=== PATIENT | male | born 1985 | race Caucasian/White ===

== ENCOUNTER 2022-01-29 20:35 | Emergency (ER) | payer SELFPAY ==
[~2022-01-29] VITALS: Ht 160 cm; Wt 59.0 kg
[2022-01-29] MEDS ORDERED: METHOCARBAMOL 500MG TABLET PO ONE (23:15)
[2022-01-29] MEDS ORDERED: KETOROLAC 60MG/2ML VIAL IM ONE (23:15)
[2022-01-29 23:45] VITALS: BP 107/65
[2022-01-30] MEDS ORDERED: NAPR-681 MT (01:58)
[2022-01-30] MEDS ORDERED: METH-773 MT (01:59)
== END 2022-01-30 02:15 | disposition home or self-care (01) ==
LOC: ER 20:35
DX: S16.1XXA Strain of muscle, fascia and tendon at neck level, initial encounter (principal); M25.512 Pain in left shoulder; V43.52XA Car driver injured in collision with other type car in traffic accident, initial encounter; Y93.89 Activity, other specified; Y92.410 Unspecified street and highway as the place of occurrence of the external cause
CPT/HCPCS: 72125; 73030; 96372; 99284; J1885